=== PATIENT | female | born 1995 | race Two or more races ===

== ENCOUNTER 2019-10-17 09:44 | Inpatient (IN) | payer OTHER ==
[~2019-10-17] VITALS: Ht 154.9 cm; Wt 64.0 kg
[2019-11-08] MEDS ORDERED: FOLIC ACID20 MG PO (05:58)
[2019-11-08] MEDS ORDERED: PRENATAL TABLE1 EAC1 PO (05:58)
== END 2019-11-10 12:41 | disposition home or self-care (01) | DRG 807 ==
LOC: LDR 11-08 05:11 → OB/GYN 11-08 11:10
PROVIDERS: ADMIT Specialist
PROC: 10E0XZZ Delivery of Products of Conception, External Approach (ICD-10-PCS; principal; 2019-11-08)
PROC: 4A1HXFZ Monitoring of Products of Conception, Cardiac Rhythm, External Approach (ICD-10-PCS; 2019-11-08)
PROC: 3E033VJ Introduction of Other Hormone into Peripheral Vein, Percutaneous Approach (ICD-10-PCS; 2019-11-08)
DX: O80 Encounter for full-term uncomplicated delivery (principal); Z37.0 Single live birth; Z3A.39 39 weeks gestation of pregnancy

== ENCOUNTER → 2020-12-10 | Emergency (ER) | payer OTHER ==
[~2020-12-10] VITALS: Ht 154.9 cm; Wt 59.9 kg
[~2020-12-10] MED LIST: FOLIC ACID20 MG PO; NAPROXEN500 MG PO; PRENATAL TABLE1 EAC1 PO
== END | disposition home or self-care (01) ==
LOC: ER 20:02
DX: N83.8 Other noninflammatory disorders of ovary, fallopian tube and broad ligament (principal); N39.0 Urinary tract infection, site not specified

== ENCOUNTER → 2021-01-23 | Emergency (ER) | payer OTHER ==
[~2021-01-23] VITALS: Ht 154.9 cm; Wt 59.4 kg
[~2021-01-23] MED LIST changes: +8 HOUR650 MG
== END | disposition home or self-care (01) ==
LOC: ER 13:43
DX: R10.84 Generalized abdominal pain (principal)

== ENCOUNTER 2022-04-30 16:48 | Emergency (ER) | payer OTHER ==
[~2022-04-30] VITALS: Ht 154.9 cm; Wt 58.1 kg
== END 2022-04-30 21:07 | disposition home or self-care (01) ==
LOC: ER 16:48
DX: M62.82 Rhabdomyolysis (principal); R94.4 Abnormal results of kidney function studies